=== PATIENT | female | born 1950 | race Caucasian/White ===

== ENCOUNTER 2017-03-03 23:39 | Inpatient (IN) | payer MEDICARE ==
[2017-03-04] MEDS ORDERED: Ondansetron HCl/PF 4 MG/2 ML Vial ONE (00:09)
[2017-03-04] MEDS ORDERED: Cefepime 2 GM VIAL ONE (00:40)
[2017-03-04] MEDS ORDERED: Sodium Chloride 0.9% 100 ML ONE (00:42)
[2017-03-04] MEDS ORDERED: Acetaminophen 325 MG TAB ONE (00:57)
[2017-03-04 00:59] LABS: Hemoglobin 13.6 g/dL (12.0-16.0); Mean Corpuscular HGB CONC 34.6 g/dL (32.0-36.0); Mean Corpuscular Hemoglobin 30.4 pg (27.0-31.0); Mean Corpuscular Volume 87.8 fl (81.0-99.0); Mean Platelet Volume 5.6 fL (7.4-10.4); Platelet Count 225 thou/uL (130-400); RBC Distribution Width 10.9 % (11.5-14.5); Red Blood Cell (RBC) Count 4.47 mill/uL (4.20-5.40); White Blood Cell (WBC) Count 17.6 thou/uL (4.8-10.8)
[2017-03-04 01:17] LABS: ALT (SGPT) 17 U/L (8-55); AST (SGOT) 10 U/L (5-34); Albumin 3.8 g/dL (3.4-4.8); Alkaline Phosphatase 44 U/L (40-150); Anion Gap 17 mmol/L (10-20); Bilirubin, Total 0.6 mg/dL (0.2-1.2); Calc. Creatinine Clearance 0 mL/min (70-130); Calcium 9.9 mg/dL (7.8-10.44); Carbon Dioxide 27 mmol/L (23-31); Chloride 101 mmol/L (98-107); Estimated GFR-MDRD 81; Globulin 2.3 g/dL (2.4-3.5); Glucose 136 mg/dL (80-115); Potassium 3.8 mmol/L (3.5-5.1); Protein, Total 6.1 g/dL (6.0-8.3); Sodium 141 mmol/L (136-145)
[2017-03-04 01:25] LABS: BUN (Urea Nitrogen) 23 mg/dL (9.8-20.1)
[2017-03-04 01:27] LABS: Anisocytosis SLIGHT = 6-15 cells (100X) (0-5/hpf); Band 4 % (5-11); Eosinophils 1 % (0-10); Lymphocytes 13 % (21-51); MDiff Complete? YES; Monocytes 5 % (0-10); Neutrophil 77 % (42-75)
[2017-03-04 02:29] LABS: Bilirubin Negative (Negative); Blood, Urine Negative (Negative); Clarity Clear (Clear); Glucose, Urine (Dipstick) >=1000 mg/dL (Negative); Leukocyte Negative (Negative); Nitrite Negative (Negative); Protein, Urine (Dipstick) Negative (Neg-Trace); Urobilinogen 0.2 mg/dL (0.2-1.0)
[2017-03-04 03:48] VITALS: BMI 27.6
[2017-03-04] MEDS ORDERED: Acetaminophen 325 MG TAB PO PRN ×2 (03:49→10:28)
[2017-03-04] MEDS ORDERED: Ondansetron ODT 4 MG TAB SL PRN (03:49)
[2017-03-04] MEDS ORDERED: Sodium Chloride 0.9% 1,000 ML IV SCH (03:49)
[2017-03-04] MEDS ORDERED: Ondansetron HCl/PF 4 MG/2 ML Vial IVP PRN (03:49)
[2017-03-04 05:37] LABS: Lactic Acid 1.4 mmol/L (0.5-2.2)
[2017-03-04] MEDS ORDERED: Clindamycin/D5W 900 MG in Premix Bag 1 BAG IVPB SCH (06:00)
--- NOTE | 2017-03-04 09:06 | RAD ---
SINGLE VIEW OF THE CHEST: COMPARISON: 10/05/09. HISTORY: Left arm pain with redness, swelling, and vomiting. Fever. FINDINGS: Single view of the chest shows a normal sized cardiomediastinal silhouette. There is no evidence of c onsolidation, mass, or pleural effusion. The bones are unremarkable. IMPRESSION: No evidence of acute cardiopulmonary disease. POS: [facility]
[2017-03-04] MEDS ORDERED: Dextrose 50% Abboject 50 ML SYRINGE SLOW IVP PRN (10:28)
[2017-03-04] MEDS ORDERED: Senokot 8.6 MG TAB PO PRN (10:28)
[2017-03-04] MEDS ORDERED: HumaLOG 300 UNITS/3 ML VIAL SC PRN ×2 (10:28)
[2017-03-04] MEDS ORDERED: Guaifenesin DM 100-10/5 ML UDCUP PO PRN (10:28)
[2017-03-04] MEDS ORDERED: Dextrose 5% in Water 1,000 ML IV PRN (10:28)
[2017-03-04] MEDS: Sodium Chloride 0.9% 1,000 ML IV SCH (11:27)
[2017-03-04] MEDS: cefTRIAXone\\ROCEPHIN 2 GM in Sodium Chloride 0.9% 100 ML IVPB SCH (12:26)
--- NOTE | 2017-03-04 14:06 | HP ---
REASON FOR ADMISSION: Left upper extremity cellulitis, sepsis. HISTORY OF PRESENT ILLNESS: The patient gives history of sudden onset of left upper extremity redness with aching and fever. She also developed chills. This started around 11:15 p.m. She came to the ER and started to have nausea and vomiting and her systolic blood pressure dropped down to 70s. She was given a dose of clindamycin, cefepime and vancomycin in the ER. The patient has known history of left breast cancer with prior mastectomy with lymph node resection. She wears a compression sleeve on a daily basis. She has had 1 prior episode of cellulitis in the left upper extremity in 06/2016. Patient says usually she gets a dose of IV antibiotics and it goes away, but this time this was severe with chills, rigors and her blood pressure dropping in association with nausea and vomiting as well. Patient follows up at [facility] for her left breast cancer. Last followup was on 11/24/2016. 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 PAST MEDICAL AND SURGICAL HISTORY: Hypertension, diabetes mellitus type 2, osteoporosis, left breast cancer with mastectomy and prior chemo and radiation therapy, hysterectomy. CURRENT MEDICATIONS: Patient is on metformin 1000 mg twice daily, Januvia 100 mg daily, Invokana 300 mg daily, valsartan 320 mg daily, anastrozole 1 mg daily , calcium with vitamin D twice daily, alendronate 70 mg once a week, and Levemir 12 units subcu daily. ALLERGIES: AMOXICILLIN which causes petechia. PERSONAL HISTORY: Does not abuse alcohol or drugs. No history of smoking. Lives with her . FAMILY HISTORY: Mother is 88 years old and is living. She has history of COPD. Has had a pacemaker and has dementia. Father of massive PA at the age of 87 years. REVIEW OF SYSTEMS: The following complete review of systems was negative, unless otherwise mentioned in the HPI or below: Constitutional: Weight loss or gain, ability to conduct usual activities. Skin: Rash, itching. Eyes: Double vision, pain. ENT/Mouth: Nose bleeding, neck stiffness, pain, tenderness. Cardiovascular: Palpitations, dyspnea on exertion, orthopnea. Respiratory: Shortness of breath, wheezing, cough, hemoptysis, fever or night sweats. Gastrointestinal: Poor appetite, abdominal pain, heartburn, nausea, vomiting, constipation, or diarrhea. Genitourinary: Urgency, frequency, dysuria, nocturia. Musculoskeletal: Pain, swelling. Neurologic/Psychiatric: Anxiety, depression. Allergy/Immunologic: Skin rash, bleeding tendency. PHYSICAL EXAMINATION: GENERAL: The patient is a 66-year-old female who is currently not in any acute distress. VITAL SIGNS: Blood pressure 160/80 on arrival with blood pressure dropping to 106/53. Her temperature 99.7 degrees Fahrenheit, respiratory rate 18 per minute , saturating 96% on room air, pulse is 90 per minute. NECK: Supple, no elevated JVD. EYES: Extraocular muscles intact. Pupils reacting to light. ORAL CAVITY: Mucous membranes are dry. No exudates or congestion. CARDIOVASCULAR SYSTEM: S1, S2 heard. Regular rhythm. RESPIRATORY SYSTEM: Air entry 1+ bilaterally. No rales or rhonchi. ABDOMEN: Soft, bowel sounds heard. No tenderness, rigidity or guarding. EXTREMITIES: Left upper extremity, there is edema and erythema. This extends to entire left upper extremity to the anterior chest wall adjacent to the left upper extremity. Peripheral pulses are 1+ bilateral. There is no gangrene. The patient is able to move her left upper extremity well. CENTRAL NERVOUS SYSTEM: No gross focal deficits seen. Patient is alert, awake , oriented well. PSYCHIATRIC: The patient's mood is euthymic. No hallucinations or delusions. LABORATORY DATA AND X-RAY FINDINGS: White count of 17, hemoglobin and hematocrit 13 and 39, platelet count 225 with 77% neutrophils and 4% bands, MCV is 87. Electrolytes are stable. BUN 23, creatinine 0.7, glucose is 136, lactic acid is 2.8. Liver enzymes within normal limits. Albumin is 3.8. Chest x-ray done shows no acute cardiopulmonary abnormalities. EKG done show normal sinus rhythm at 84 beats per minute. There are Q-waves seen in V1 and V2. There is poor R-wave progression and likely mild LVH. CLINICAL IMPRESSION AND PLAN: The patient will be admitted to medical floor for left upper extremity cellulitis with sepsis. The patient has prior history of lymphedema due to left mastectomy with lymph node dissection done 7 years back for breast cancer. She has had 1 prior episode of cellulitis in 06/2016. She will be placed on vancomycin and ceftriaxone for now. She will be closely monitored for any untoward reactions for ceftriaxone as patient is allergic to AMOXICILLIN. She will also be on normal saline at 80 mL per hour due to current sepsis. We will continue her Arimidex, metformin, valsartan, and Januvia as before. We will also consult Dr. Mata in view of her history of breast cancer with lymphedema and current cellulitis with sepsis. MTDD
[2017-03-04] MEDS: Vancomycin HCl 750 MG in Sodium Chloride 0.9% 250 ML 250 ML IVPB SCH (14:22)
--- NOTE | 2017-03-04 18:11 | CON ---
DATE OF CONSULTATION: 03/04/2017 REASON FOR CONSULTATION: Cellulitis, left upper extremity. HISTORY OF PRESENT ILLNESS: A 66-year-old with a history of left breast cancer status post mastectom y and chemoradiation with chronic lymphedema of left upper extremity managed with a sleeve. The lolly ent has had various episodes of cellulitis in the past usually managed either with home antimicrobial therapy or visits to the emergency room, but never had been admitted until this time. She developed some vomiting, left arm pain, and redness. She has been started on antimicrobial therapy and feelin g better at this time. No headaches. No visual symptoms. No more vomiting. No dyspnea or chest pa in. No abdominal pain or diarrhea. No genitourinary symptoms. PAST MEDICAL HISTORY: Left breast cancer, hypertension, treatment with mastectomy and chemoradiation therapy. PAST SURGICAL HISTORY: Includes hysterectomy as well. SOCIAL HISTORY: Never smoker. ALLERGIES: Possible reaction to AMOXICILLIN, but this is not certain and was long time ago. MEDICATIONS AT HOME: Metformin, Januvia, Invokana, valsartan, anastrozole, alendronate, and insulin. FAMILY HISTORY: Noncontributory. ANTIMICROBIALS: Now she is receiving ceftriaxone and vancomycin. PHYSICAL EXAMINATION: VITAL SIGNS: T-max 99.7, blood pressure 111/66, pulse 82, respirations 14-16, and O2 sat 95%. SKIN: Shows the very diffuse salmon colored erythema, circumferential, very symmetric distribution e xtending from the axillary fold all the way to the wrist, left side. No petechiae or purpura. No bl istering noted. A little bit of erythema noted around the mastectomy site as well. No lymphadenopat hy. HEENT: Ocular movements are conjugate. Oral cavity is normal. NECK: Supple. LUNGS: With symmetric clear breath sounds. HEART: Normal. ABDOMEN: Soft, not distended or tender. No ascites. No bladder distention. No organomegaly. EXTREMITIES: No joint inflammatory activity. Pulses show 2+ in dorsalis pedis. Plantar responses a re flexure. NEUROLOGIC: Cognitive function appears to be intact. LABORATORY DATA: White cell count 17.6, hemoglobin 13, platelets 225 with 77% neutrophils. Creatini ne is 0.72, normal liver profile. Globulin 2.3. Urinalysis was unremarkable except for glycosuria. Cultures thus far negative. Chest x-ray with no infiltrates. ASSESSMENT: Lymphedema of left upper extremity following mastectomy and lymphadenectomy for manageme nt of breast cancer and recurrent episodes of cellulitis. Now the patient comes with another episode . In view of the clinical findings, most likely scenario is beta hemolytic streptococcal cellulitis. No evidence of abscess to suggest this Staphylococcal infection. We will discontinue vancomycin an d continue Rocephin and then eventually transition to oral Keflex for discharge planning for another 2 weeks. After that, may consider allergy testing for penicillin and potential use of Pen-Vee K as a chronic suppressive agent for 6 to 12 months. Another approach would be to give her a supply of Kef bj for her to start preemptively at the earlier signs of recurrent inflammatory change in the future .
[2017-03-04] MEDS: metFORMIN 500 MG TAB PO SCH (18:18)
[2017-03-04] MEDS: Famotidine 20 MG TAB PO SCH (20:01)
[2017-03-04] MEDS: INSULIN DETEMIR SC SCH ×4 (22:33)
[2017-03-05] MEDS: Vancomycin HCl 750 MG in Sodium Chloride 0.9% 250 ML 250 ML IVPB SCH ×2 (01:26→15:08)
[2017-03-05] MEDS: Sodium Chloride 0.9% 1,000 ML IV SCH (01:27)
[2017-03-05 05:03] LABS: #Eosinphils 0.1 thou/uL (0.0-0.7); #Lymphocytes 1.5 thou/uL (1.20-3.40); #Monocytes 0.6 thou/uL (0.11-0.59); #Neutrophils 6.6 thou/uL (1.40-6.50); %Basophils 0.4 % (0.0-1.0); %Eosinophils 1.2 % (0.0-10.0); %Neutrophils 74.4 % (42.0-75.0); Hemoglobin 11.6 g/dL (12.0-16.0); Mean Corpuscular Hemoglobin 31.2 pg (27.0-31.0); Mean Corpuscular Volume 94.7 fl (81.0-99.0); Mean Platelet Volume 6.7 fL (7.4-10.4); Platelet Count 187 thou/uL (130-400); RBC Distribution Width 11.6 % (11.5-14.5); Red Blood Cell (RBC) Count 3.73 mill/uL (4.20-5.40); White Blood Cell (WBC) Count 8.9 thou/uL (4.8-10.8)
[2017-03-05 05:19] LABS: Anion Gap 12 mmol/L (10-20); BUN (Urea Nitrogen) 12 mg/dL (9.8-20.1); Calc. Creatinine Clearance 107 mL/min (70-130); Calcium 8.1 mg/dL (7.8-10.44); Carbon Dioxide 22 mmol/L (23-31); Chloride 108 mmol/L (98-107); Estimated GFR-MDRD Greater than 90; Glucose 119 mg/dL (80-115); Potassium 3.5 mmol/L (3.5-5.1); Sodium 138 mmol/L (136-145)
[2017-03-05] MEDS: Enoxaparin Sodium 40 MG/0.4 ML SYRINGE SC SCH (08:35)
[2017-03-05] MEDS: Famotidine 20 MG TAB PO SCH ×2 (08:35→20:03)
[2017-03-05] MEDS: Alogliptin 25 MG TAB PO SCH (08:35)
[2017-03-05] MEDS: metFORMIN 500 MG TAB PO SCH ×2 (08:36→16:32)
[2017-03-05] MEDS: Valsartan 80 MG TAB PO SCH (08:50)
[2017-03-05] MEDS: Anastrozole 1 MG TAB PO SCH (08:50)
--- NOTE | 2017-03-05 12:40 | PDOC.PN ---
- Subjective Encounter Start Date: 03/05/17 Encounter Start Time: 12:37 Subjective: Seen and examined feeling better - Objective Resuscitation Status: Resuscitation Status FULL:Full Resuscitation Vital Signs & Weight: Vital Signs (12 hours) Temp Pulse Resp BP Pulse Ox 03/05/17 08:00 97.7 F 66 18 131/54 L 96 Weight Weight 156 lb 4.8 oz I&O: 03/04/17 03/05/17 03/06/17 06:59 06:59 06:59 Intake Total 390 2360 800 Output Total 700 1350 Balance -310 1010 800 Result Diagrams: 03/05/17 03:59 03/05/17 03:59 Additional Labs: Accuchecks 03/05/17 03/04/17 03/04/17 06:06 20:44 16:42 POC Glucose 101 146 H 95 Phys Exam - Physical Examination Constitutional: NAD HEENT: PERRLA, moist MMs, sclera anicteric, TM's clear Neck: no nodes, no JVD, supple, full ROM Respiratory: no wheezing, no rales, no rhonchi, clear to auscultation bilateral Cardiovascular: RRR, no significant murmur, no rub Gastrointestinal: soft, non-tender, no distention, positive bowel sounds Musculoskeletal: no edema, pulses present Deviation from normal: LT upper cellulitis Dx/Plan (1) Cellulitis Code(s): L03.90 - CELLULITIS, UNSPECIFIED Status: Acute (2) Breast cancer Status: Acute (3) Hypertension Code(s): I10 - ESSENTIAL (PRIMARY) HYPERTENSION Status: Acute (4) Diabetes 1.5, managed as type 2 Code(s): E10.9 - TYPE 1 DIABETES MELLITUS WITHOUT COMPLICATIONS Status: Acute - Plan plan discussed w/ family, continue antibiotics, PT/OT, social services aide Appreciate ID input * .
[2017-03-05] MEDS: cefTRIAXone\\ROCEPHIN 2 GM in Sodium Chloride 0.9% 100 ML IVPB SCH (12:59)
[2017-03-05 13:23] LABS: Vancomycin, Trough 6.9 ug/mL
[2017-03-05] MEDS: Vancomycin HCl 1 GM in Premix Bag 1 BAG IVPB SCH ×2 (15:00→21:29)
[2017-03-05] MEDS: INSULIN DETEMIR SC SCH ×4 (20:03)
[2017-03-06] MEDS: Vancomycin HCl 1 GM in Premix Bag 1 BAG IVPB SCH ×3 (05:27→21:24)
[2017-03-06] MEDS: Alogliptin 25 MG TAB PO SCH (08:00)
[2017-03-06] MEDS: Famotidine 20 MG TAB PO SCH ×2 (08:00→20:06)
[2017-03-06] MEDS: metFORMIN 500 MG TAB PO SCH ×2 (08:00→16:55)
[2017-03-06] MEDS: Enoxaparin Sodium 40 MG/0.4 ML SYRINGE SC SCH (08:01)
--- NOTE | 2017-03-06 08:20 | PDOC.PN ---
- Subjective Encounter Start Date: 03/06/17 Encounter Start Time: 08:19 Subjective: Seen and examined with no new complaiint - Objective Resuscitation Status: Resuscitation Status FULL:Full Resuscitation Vital Signs & Weight: Weight Weight 156 lb 4.8 oz I&O: 03/05/17 03/06/17 03/07/17 06:59 06:59 06:59 Intake Total 2360 1280 Output Total 1350 Balance 1010 1280 Result Diagrams: 03/05/17 03:59 03/05/17 03:59 Additional Labs: Accuchecks 03/06/17 03/05/17 03/05/17 05:52 19:51 16:36 POC Glucose 135 H 136 H 129 H 03/05/17 12:20 POC Glucose 85 Phys Exam - Physical Examination Constitutional: NAD HEENT: PERRLA, moist MMs, sclera anicteric, TM's clear Neck: no nodes, no JVD, supple, full ROM Respiratory: no wheezing, no rales, no rhonchi, clear to auscultation bilateral Cardiovascular: RRR, no significant murmur, no rub Gastrointestinal: soft, non-tender, no distention Musculoskeletal: pulses present, edema present LT upper extremity Neurological: non-focal, normal sensation, moves all 4 limbs Dx/Plan (1) Cellulitis Code(s): L03.90 - CELLULITIS, UNSPECIFIED Status: Acute (2) Breast cancer Status: Acute (3) Hypertension Code(s): I10 - ESSENTIAL (PRIMARY) HYPERTENSION Status: Acute (4) Diabetes 1.5, managed as type 2 Code(s): E10.9 - TYPE 1 DIABETES MELLITUS WITHOUT COMPLICATIONS Status: Acute - Plan plan discussed w/ family, continue antibiotics, PT/OT, social work case manager On vancomycin/ceftriaxone--continue -: ID following appreciate input * .
[2017-03-06] MEDS: Valsartan 80 MG TAB PO SCH (11:51)
[2017-03-06] MEDS: Anastrozole 1 MG TAB PO SCH (11:51)
[2017-03-06] MEDS: cefTRIAXone\\ROCEPHIN 2 GM in Sodium Chloride 0.9% 100 ML IVPB SCH (11:56)
[2017-03-06 14:01] LABS: Vancomycin, Trough 17.1 ug/mL
[2017-03-06] MEDS: INSULIN DETEMIR SC SCH ×2 (21:24)
[2017-03-07] MEDS: Vancomycin HCl 1 GM in Premix Bag 1 BAG IVPB SCH (05:05)
[2017-03-07 08:21] VITALS: BP 130/51; TEMP 97.7
[2017-03-07] MEDS: Famotidine 20 MG TAB PO SCH (08:44)
[2017-03-07] MEDS: Enoxaparin Sodium 40 MG/0.4 ML SYRINGE SC SCH (08:44)
[2017-03-07] MEDS: Alogliptin 25 MG TAB PO SCH (08:44)
[2017-03-07] MEDS: metFORMIN 500 MG TAB PO SCH (08:44)
[2017-03-07] MEDS: Valsartan 80 MG TAB PO SCH (11:15)
[2017-03-07] MEDS: Anastrozole 1 MG TAB PO SCH (11:16)
--- NOTE | 2017-03-07 11:20 | PDOC.PN ---
- Subjective Encounter Start Date: 03/07/17 Encounter Start Time: 09:50 -: old records requested/rev Patient seen and examined. No new complaints. No overnight events - Objective Resuscitation Status: Resuscitation Status FULL:Full Resuscitation MAR Reviewed: Yes Vital Signs & Weight: Vital Signs (12 hours) Temp Pulse Resp BP Pulse Ox 03/07/17 08:20 97.7 F 75 20 130/51 L 96 03/07/17 08:00 97.7 F 75 20 96 Weight Weight 156 lb 4.8 oz I&O: 03/06/17 03/07/17 03/08/17 06:59 06:59 06:59 Intake Total 1280 840 Balance 1280 840 Result Diagrams: 03/05/17 03:59 03/05/17 03:59 Additional Labs: Accuchecks 03/07/17 03/06/17 03/06/17 05:26 20:22 17:17 POC Glucose 98 184 H 122 H 03/06/17 11:13 POC Glucose 175 H Phys Exam - Physical Examination Constitutional: NAD HEENT: PERRLA, moist MMs, sclera anicteric Neck: no JVD, supple Respiratory: no wheezing, no rales, no rhonchi Cardiovascular: RRR, no significant murmur, no rub Gastrointestinal: soft, non-tender, no distention, positive bowel sounds Musculoskeletal: no edema, pulses present Neurological: non-focal, normal sensation Lymphatic: no nodes Psychiatric: normal affect, A&O x 3 Skin: no rash, normal turgor Dx/Plan (1) Cellulitis of left upper extremity Code(s): L03.114 - CELLULITIS OF LEFT UPPER LIMB Status: Acute (2) Sepsis Code(s): A41.9 - SEPSIS, UNSPECIFIED ORGANISM Status: Acute (3) Diabetes type 2, controlled Code(s): E11.9 - TYPE 2 DIABETES MELLITUS WITHOUT COMPLICATIONS Status: Chronic (4) H/O malignant neoplasm of breast Code(s): Z85.3 - PERSONAL HISTORY OF MALIGNANT NEOPLASM OF BREAST Status: Chronic (5) Hypertension Code(s): I10 - ESSENTIAL (PRIMARY) HYPERTENSION Status: Chronic - Plan cont current plan of care, continue antibiotics * medication reviewed as below * symptomatic treatment * see discharge summery. Review of Systems - Review of Systems ENT: negative: Ear Pain, Ear Discharge, Nose Pain, Nose Discharge, Nose Congestion, Mouth Pain, Mouth Swelling, Throat Pain, Throat Swelling, Other Respiratory: negative: Cough, Dry, Shortness of Breath, Hemoptysis, SOB with Excertion, Pleuritic Pain, Sputum, Wheezing Cardiovascular: negative: chest pain, palpitations, orthopnea, paroxysmal nocturnal dyspnea, edema, light headedness, other Gastrointestinal: negative: Nausea, Vomiting, Abdominal Pain, Diarrhea, Constipation, Melena, Hematochezia, Other Genitourinary: negative: Dysuria, Frequency, Incontinence, Hematuria, Retention , Other Musculoskeletal: negative: Neck Pain, Shoulder Pain, Arm Pain, Back Pain, Hand Pain, Leg Pain, Foot Pain, Other - Medications/Allergies Allergies/Adverse Reactions: Allergies Allergy/AdvReac Type Severity Reaction Status Date / Time amoxicillin Allergy Rash Verified 03/04/17 03:41 Medications: Current Medications Acetaminophen (Tylenol) 650 mg PO Q4H PRN PRN Reason: Headache/Fever or Pain Alogliptin Benzoate (Alogliptin) 25 mg PO DAILY [facility] Last Admin: 03/07/17 08:44 Dose: 25 mg Anastrozole (Arimidex) 1 mg PO DAILY [facility] Last Admin: 03/07/17 11:16 Dose: 1 mg Dextrose/Water (Dextrose 50%) 25 gm SLOW IVP PRN PRN PRN Reason: Hypoglycemia Enoxaparin Sodium (Lovenox) 40 mg SC 0900 [facility] Last Admin: 03/07/17 08:44 Dose: 40 mg Famotidine (Pepcid) 20 mg PO BID [facility] Last Admin: 03/07/17 08:44 Dose: 20 mg Glucagon (Glucagon) 1 mg IM PRN PRN PRN Reason: Hypoglycemia Guaifenesin/Dextromethorphan (Robitussin Dm) 15 ml PO Q4H PRN PRN Reason: Cough Ceftriaxone Sodium 2 gm/ (Sodium Chloride) 100 mls @ 200 mls/hr IVPB 1200 [facility] Last Admin: 03/06/17 11:56 Dose: 100 mls Dextrose/Water (D5w) 1,000 mls @ 0 mls/hr IV .Q0M PRN; As Directed PRN Reason: Hypoglycemia Insulin Detemir 12 units/ (Syringe) 0.12 mls @ 0 mls/hr SC HS [facility] Last Admin: 03/06/17 21:24 Dose: 0.12 mls Insulin Detemir 12 units/ (Syringe) 0.12 mls @ 0 mls/hr SC HS [facility] Last Admin: 03/06/17 21:24 Dose: Not Given Vancomycin HCl 1 gm/ Device 200 mls @ 200 mls/hr IVPB 0600,1400,2200 [facility] Last Admin: 03/07/17 05:05 Dose: 200 mls Insulin Human Lispro (Humalog) 0 units SC .MODERATE SLIDING SC PRN PRN Reason: Moderate Correctional Scale Insulin Human Lispro (Humalog) 0 units SC .BEDTIME SLIDING SC PRN PRN Reason: Bedtime Correctional Scale Metformin HCl (Glucophage) 1,000 mg PO BID-WM [facility] Last Admin: 03/07/17 08:44 Dose: 1,000 mg Miscellaneous Medication (Pharmacy To Dose) 1 each IVPB .VANCOMYCIN [facility] Senna (Senokot) 2 tab PO HSPRN PRN PRN Reason: Constipation Valsartan (Diovan) 320 mg PO DAILY [facility] Last Admin: 03/07/17 11:15 Dose: 320 mg
--- NOTE | 2017-03-07 12:08 | DIS ---
DATE OF ADMISSION: 03/04/2017 DATE OF DISCHARGE: 03/07/2017 PRIMARY CARE PHYSICIAN: Dr. Arron Herrera. DISCHARGE DISPOSITION: Home. PRIMARY DISCHARGE DIAGNOSES: 1. Left upper extremity cellulitis. 2. Sepsis. SECONDARY DISCHARGE DIAGNOSES: 1. Chronic lymphedema of left upper extremity. 2. History of malignant neoplasm of breast. 3. Hypertension. 4. Diabetes type 2. PRIMARY PROCEDURES/OPERATIONS: None. RADIOLOGICAL INVESTIGATION: Chest x-ray was normal. SIGNIFICANT LABORATORY DATA: Hemoglobin 11.6, creatinine 0.57. Urinalysis normal. Blood culture ne gative. DISCHARGE MEDICATIONS: Fosamax 70 mg every week, Arimidex 1 mg p.o. daily, calcium with vitamin D 1 tablet p.o. b.i.d., Invokana 300 mg p.o. daily, Levemir insulin 12 units subcutaneously at bedtime, m etformin 1000 mg p.o. b.i.d., Januvia 100 mg p.o. daily, valsartan 320 mg p.o. daily, Keflex 500 mg p .o. t.i.d. for 10 more days. CONTRAINDICATIONS: None. CODE STATUS: FULL CODE. INPATIENT CONSULTANTS: Dr. Mata. TEST RESULTS PENDING ON DISCHARGE: None. ALLERGIES: AMOXICILLIN. DISCHARGE PLAN: Post hospital, the patient will follow up with primary care physician in 1 week. Th patient is advised to make appointment with Dr. Mata if needed. HOSPITAL COURSE: A 66-year-old female with history of breast cancer required mastectomy. She was ad mitted by Dr. Nelson. Please see his H&P for further details. The patient was meeting sepsis c riteria. She was having cellulitis of left upper extremity. She was admitted to medical floor. She was treated with vancomycin and Rocephin. Dr. Mata was consulted and he discontinued vancomycin. He continued with Rocephin. Patient has allergy to amoxicillin, but she was not sure whether it is t rue allergy or not, but she tolerated Rocephin very well. The patient is going to make appointment w [facility] network diagnostic support specialist to confirm her allergy to amoxicillin. Dr. Mata recommended to continue Kefl ex for another week and she will need prophylactic therapy to prevent recurrent cellulitis. At this point, the patient wanted to follow up with network diagnostic support specialist to confirm her allergy status with kiesha xicillin and then she will decide about penicillin VK therapy. The patient has dramatic improvement in her cellulitis with IV antibiotic therapy. She remained afeb rile and hemodynamically stable. The patient is seen and examined at bedside today. Please see my progress note from today for furthe r details. All new medication prescription given to her. The patient is medically stable for discha rge today.
== END 2017-03-07 12:25 | disposition home or self-care (01) | DRG 872 ==
LOC: SCSER 23:39 → 2NO 03-04 01:00 → T4-B 03-04 11:53
PROVIDERS: ADMIT Internal Medicine; ATTEND Internal Medicine
DX: A41.9 Sepsis, unspecified organism (principal); E11.9 Type 2 diabetes mellitus without complications; I10 Essential (primary) hypertension; L03.114 Cellulitis of left upper limb; I89.0 Lymphedema, not elsewhere classified; Z85.3 Personal history of malignant neoplasm of breast; Z90.710 Acquired absence of both cervix and uterus; Z90.12 Acquired absence of left breast and nipple
CPT/HCPCS: 36415; 36416; 71045; 80048; 80053; 80202; 81003; 83605; 85025; 87040; 93005; 96361; 96365; 96367; 96375; J0692; J0696; J1650; J1815; J2405; J3370; J3490; J7050

== ENCOUNTER 2020-07-24 16:04 | Outpatient (CLI) | payer MEDICARE ==
[2020-07-24 18:04] LABS: #Eosinphils 0.2 10x3/uL (0.0-0.5); #Monocytes 0.5 10x3/uL (0.0-1.1); #Neutrophils 5.3 10x3/uL (1.5-8.4); %Basophils 0.5 % (0.0-2.0); %Eosinophils 2.7 % (0.0-6.0); %Lymphocytes 25.8 % (18.0-47.0); %Monocytes 6.5 % (0.0-10.0); %Neutrophils 64.1 % (40.0-75.0); Hemoglobin 13.4 g/dL (12.0-15.5); Mean Corpuscular HGB CONC 34.3 g/dL (32.0-36.0); Mean Corpuscular Hemoglobin 30.1 pg (27.0-33.0); Mean Corpuscular Volume 87.9 fl (81.6-98.3); Platelet Count 285 10x3/uL (150-450); RBC Distribution Width 12.7 % (11.5-14.5); Red Blood Cell (RBC) Count 4.45 10x6/uL (3.90-5.03); White Blood Cell (WBC) Count 8.2 10x3/uL (3.5-10.5)
[2020-07-24 18:15] LABS: INR-International Normal Ratio 0.9; Prothrombin Time 9.8 sec (9.5-12.1)
[2020-07-24 18:16] LABS: Anion Gap 15 mmol/L (10-20); BUN (Urea Nitrogen) 12 mg/dL (9.8-20.1); Calc. Creatinine Clearance 0 mL/min (70-130); Calcium 9.5 mg/dL (7.8-10.44); Carbon Dioxide 28 mmol/L (23-31); Chloride 100 mmol/L (98-107); Glucose 281 mg/dL (80-115); Potassium 3.8 mmol/L (3.5-5.1); Sodium 139 mmol/L (136-145)
[2020-07-25 13:03] LABS: SARS-CoV-2 PCR by NAA Not Detected (NotDetected)
== END 2020-07-24 16:05 | disposition home or self-care (01) ==
LOC: LABBT 16:04
PROVIDERS: ATTEND Orthopaedic Surgery
DX: Z01.818 Encounter for other preprocedural examination (principal); Z20.822 Contact with and (suspected) exposure to COVID-19; M17.11 Unilateral primary osteoarthritis, right knee
CPT/HCPCS: 80048; 85025; 85610; 87081; U0003; U0005; 93005; 93010

== ENCOUNTER 2020-07-29 05:35 | Inpatient (IN) | payer MEDICARE ==
[2020-07-25 14:42] VITALS: BMI 28.3
[2020-07-29] MEDS ORDERED: Midazolam HCl 2 mg/2 ml Vial ONE ×2 (06:14→06:31)
[2020-07-29] MEDS ORDERED: Fentanyl 100 MCG/2 ML VIAL ONE ×4 (06:14→09:53)
[2020-07-29] MEDS ORDERED: Midazolam HCl 2 mg/ml Syrup 5 ml UD Cup ONE (06:31)
[2020-07-29] MEDS ORDERED: Bupivacaine 0.25% HCL 30 ML VIAL ONE (06:32)
[2020-07-29] MEDS ORDERED: Levofloxacin 500 mg/D5W 100 ml Premix Bag ONE (06:45)
[2020-07-29] MEDS ORDERED: Clindamycin/D5W 600 mg/50 ml Premix Bag ONE (06:45)
[2020-07-29] MEDS ORDERED: Tranexamic Acid 1,000 MG/10 ML VIAL ONE (06:45)
[2020-07-29] MEDS ORDERED: Sodium Chloride 0.9% 100 ML ONE (06:45)
[2020-07-29] MEDS ORDERED: Vancomycin 1 GM/200 ML BAG ONE (06:59)
[2020-07-29] MEDS ORDERED: Vancomycin 1 GM in Premix Bag 1 BAG IVPB SCH ×2 (07:00→19:00)
[2020-07-29] MEDS ORDERED: Ropivacaine 2% HCl/PF (20 MG/10 ML VIAL) ONE (07:29)
[2020-07-29] MEDS ORDERED: Metoclopramide HCl 10 MG/2 ML VIAL ONE (07:29)
[2020-07-29] MEDS ORDERED: Bupivacaine HCl 0.5%/Epinephrine 1:200,000/PF 30 ml Vial ONE (07:29)
[2020-07-29] MEDS ORDERED: PROPOFOL 200 MG/20 ML VIAL ONE (07:29)
[2020-07-29] MEDS ORDERED: Ondansetron PF 4 MG/2 ML Vial ONE (07:29)
[2020-07-29] MEDS ORDERED: Lidocaine 1% PF 5 ML VIAL ONE (07:29)
[2020-07-29] MEDS ORDERED: Zolpidem Tartrate 5 MG TAB PO PRN ×2 (07:30→09:24)
[2020-07-29] MEDS ORDERED: Promethazine HCl 25 MG/ML VIAL IM PRN ×3 (07:30→09:24)
[2020-07-29] MEDS ORDERED: traMADol HCl 50 MG TAB PO PRN ×2 (07:30→09:24)
[2020-07-29] MEDS ORDERED: Fentanyl 100 MCG/2 ML VIAL IV PRN (07:30)
[2020-07-29] MEDS ORDERED: Ropivacaine 0.2% 550 ML 550 ML NERVE BLCK SCH (07:30)
[2020-07-29] MEDS ORDERED: Promethazine HCl 25 MG/ML VIAL SLOW IVP PRN (09:01)
[2020-07-29] MEDS ORDERED: Ondansetron HCl/PF 4 MG/2 ML Vial IVP PRN (09:01)
[2020-07-29] MEDS ORDERED: Ondansetron PF 4 MG/2 ML Vial IVP PRN (09:24)
[2020-07-29] MEDS ORDERED: HYDROcodone/Acetaminophen 10/325 mg Tablet PO PRN ×2 (09:24)
[2020-07-29] MEDS ORDERED: diphenhydrAMINE 25 MG CAP PO PRN (09:24)
[2020-07-29] MEDS ORDERED: Acetaminophen 325 MG TAB PO PRN (09:24)
[2020-07-29] MEDS ORDERED: Fentanyl 100 MCG/2 ML VIAL SLOW IVP PRN ×2 (09:24)
[2020-07-29] MEDS ORDERED: Ketorolac Tromethamine 30 MG/ML VIAL IVP PRN (09:24)
[2020-07-29] MEDS ORDERED: Ketorolac Tromethamine 30 MG/ML VIAL ONE (09:55)
[2020-07-29] MEDS ORDERED: Promethazine HCl 25 MG/ML VIAL ONE (10:14)
[2020-07-29] MEDS: Sodium Chloride 0.9% 1,000 ML IV SCH ×3 (10:51→20:26)
[2020-07-29] MEDS: Clindamycin/D5W 900 MG in Premix Bag 1 BAG IVPB SCH ×2 (12:01→18:06)
[2020-07-29] MEDS: Ketorolac Tromethamine 30 MG/ML VIAL IVP SCH ×3 (12:02→23:06)
[2020-07-29] MEDS ORDERED: Insulin Regular 300 UNITS/3 ML VIAL SC PRN (12:42)
[2020-07-29] MEDS ORDERED: Dextrose 5% in Water 1,000 ML IV PRN (12:42)
[2020-07-29] MEDS ORDERED: Dextrose 50% Abboject 50 ML SYRINGE SLOW IVP PRN (12:42)
[2020-07-29] MEDS: HYDROcodone/Acetaminophen 10/325 mg Tablet PO PRN ×2 (14:45→21:34)
[2020-07-29] MEDS ORDERED: hydrALAZINE 20 MG/ML VIAL SLOW IVP PRN (15:11)
[2020-07-29] MEDS ORDERED: Polyethylene Glycol 3350 17 GM Packet PO PRN (15:12)
[2020-07-29] MEDS: metFORMIN 500 MG TAB PO SCH (16:31)
[2020-07-29] MEDS: Insulin Regular 300 UNITS/3 ML VIAL SC PRN (16:31)
[2020-07-29] MEDS ORDERED: Lantus 1000 UNITS/10 ML VIAL SC SCH ×2 (21:00)
[2020-07-29] MEDS: Senokot S 8.6-50 MG TAB PO SCH (21:30)
[2020-07-29] MEDS: Ferrous Gluconate 324 MG TAB PO SCH (21:31)
[2020-07-29] MEDS: Calcium Carbonate 600 MG + Vit D TAB PO SCH (21:31)
[2020-07-29] MEDS: Aspirin 81 mg Enteric Coated Tablet PO SCH (21:31)
[2020-07-29] MEDS: Saccharomyces boulardii 250 MG CAP PO SCH (21:31)
[2020-07-29] MEDS: Ondansetron PF 4 MG/2 ML Vial IVP PRN (23:06)
[2020-07-30 05:45] LABS: Hemoglobin 10.8 g/dL (12.0-16.0); Mean Corpuscular HGB CONC 35.4 g/dL (32.0-36.0); Mean Corpuscular Hemoglobin 32.1 pg (27.0-31.0); Mean Corpuscular Volume 90.8 fL (78.0-98.0); Mean Platelet Volume 7.3 fL (7.4-10.4); Platelet Count 233 thou/uL (130-400); RBC Distribution Width 11.9 % (11.5-14.5); Red Blood Cell (RBC) Count 3.36 mill/uL (4.20-5.40); White Blood Cell (WBC) Count 10.2 thou/uL (4.8-10.8)
[2020-07-30] MEDS: Ketorolac Tromethamine 30 MG/ML VIAL IVP SCH ×5 (05:49→23:26)
[2020-07-30] MEDS: HYDROcodone/Acetaminophen 10/325 mg Tablet PO PRN ×4 (06:12→19:42)
[2020-07-30] MEDS: metFORMIN 500 MG TAB PO SCH ×2 (08:11→16:06)
[2020-07-30] MEDS: Lactinex Tablet PO SCH (08:11)
[2020-07-30] MEDS: Aspirin 81 mg Enteric Coated Tablet PO SCH ×2 (08:11→19:38)
[2020-07-30] MEDS: Calcium Carbonate 600 MG + Vit D TAB PO SCH ×2 (08:11→19:38)
[2020-07-30] MEDS: Losartan 25 MG TAB PO SCH (08:12)
[2020-07-30] MEDS: Ferrous Gluconate 324 MG TAB PO SCH ×2 (08:13→19:38)
[2020-07-30] MEDS: Multivitamin W/ Minerals 1 TAB PO SCH (08:13)
[2020-07-30] MEDS: Senokot S 8.6-50 MG TAB PO SCH ×2 (08:13→19:38)
[2020-07-30] MEDS ORDERED: Losartan 25 MG TAB PO SCH (09:00)
[2020-07-30] MEDS: Insulin Regular 300 UNITS/3 ML VIAL SC PRN ×2 (12:00→16:06)
[2020-07-30] MEDS: Sodium Chloride 0.9% 1,000 ML IV SCH ×2 (14:39→21:51)
[2020-07-30] MEDS: Ondansetron PF 4 MG/2 ML Vial IVP PRN (17:02)
[2020-07-30] MEDS: Saccharomyces boulardii 250 MG CAP PO SCH (19:38)
[2020-07-30] MEDS ORDERED: Lantus 1000 UNITS/10 ML VIAL SC SCH (21:00)
[2020-07-31] MEDS: HYDROcodone/Acetaminophen 10/325 mg Tablet PO PRN ×3 (02:46→13:13)
[2020-07-31] MEDS: traMADol HCl 50 MG TAB PO PRN ×2 (05:41→14:58)
[2020-07-31] MEDS: Ketorolac Tromethamine 30 MG/ML VIAL IVP SCH (05:42)
[2020-07-31 06:02] LABS: Hemoglobin 10.1 g/dL (12.0-16.0); Mean Corpuscular HGB CONC 35.5 g/dL (32.0-36.0); Mean Corpuscular Hemoglobin 32.3 pg (27.0-31.0); Mean Corpuscular Volume 90.9 fL (78.0-98.0); Mean Platelet Volume 7.2 fL (7.4-10.4); Platelet Count 215 thou/uL (130-400); RBC Distribution Width 11.7 % (11.5-14.5); Red Blood Cell (RBC) Count 3.14 mill/uL (4.20-5.40); White Blood Cell (WBC) Count 7.2 thou/uL (4.8-10.8)
[2020-07-31] MEDS: Senokot S 8.6-50 MG TAB PO SCH (07:52)
[2020-07-31] MEDS: Aspirin 81 mg Enteric Coated Tablet PO SCH (07:52)
[2020-07-31] MEDS: Losartan 25 MG TAB PO SCH (08:01)
[2020-07-31] MEDS: metFORMIN 500 MG TAB PO SCH (08:02)
[2020-07-31] MEDS: Ferrous Gluconate 324 MG TAB PO SCH (11:35)
[2020-07-31] MEDS: Multivitamin W/ Minerals 1 TAB PO SCH (11:36)
[2020-07-31 11:41] VITALS: BP 131/68; TEMP 97.9
[2020-07-31] MEDS: Calcium Carbonate 600 MG + Vit D TAB PO SCH (13:12)
[2020-07-31] MEDS: Lactinex Tablet PO SCH (13:13)
[2020-07-31] MEDS: Insulin Regular 300 UNITS/3 ML VIAL SC PRN (13:17)
[2020-07-31] MEDS: Sodium Chloride 0.9% 1,000 ML IV SCH (13:39)
== END 2020-07-31 15:57 | disposition home or self-care (01) | DRG 470 ==
LOC: SDC 05:35 → SURG A 09:24 → EDSTATUS 16:30
PROVIDERS: ADMIT Orthopaedic Surgery; ATTEND Orthopaedic Surgery
PROC: 0SRC0J9 Replacement of Right Knee Joint with Synthetic Substitute, Cemented, Open Approach (ICD-10-PCS; principal; 2020-07-29)
DX: M17.11 Unilateral primary osteoarthritis, right knee (principal); M24.561 Contracture, right knee; E11.22 Type 2 diabetes mellitus with diabetic chronic kidney disease; I12.9 Hypertensive chronic kidney disease with stage 1 through stage 4 chronic kidney disease, or unspecified chronic kidney disease; M85.80 Other specified disorders of bone density and structure, unspecified site; N18.2 Chronic kidney disease, stage 2 (mild); Z85.3 Personal history of malignant neoplasm of breast; Z88.1 Allergy status to other antibiotic agents; Z90.710 Acquired absence of both cervix and uterus; Z90.12 Acquired absence of left breast and nipple; Z98.42 Cataract extraction status, left eye; Z98.41 Cataract extraction status, right eye
CPT/HCPCS: 36415; 36416; 85027; A4306; C1713; C1776; J1815; J1885; J1956; J2250; J2405; J2550; J2704; J2765; J2795; J3010; J3370; J3490; S0020

== ENCOUNTER 2021-01-29 09:24 | Outpatient (CLI) | payer MEDICARE ==
[2021-01-29 10:59] LABS: #Basophils 0.1 10x3/uL (0.0-0.2); #Eosinphils 0.3 10x3/uL (0.0-0.5); #Monocytes 0.5 10x3/uL (0.0-1.1); #Neutrophils 5.2 10x3/uL (1.5-8.4); %Basophils 0.8 % (0.0-2.0); %Eosinophils 3.9 % (0.0-6.0); %Lymphocytes 23.1 % (18.0-47.0); %Monocytes 6.6 % (0.0-10.0); %Neutrophils 65.3 % (40.0-75.0); Hemoglobin 13.7 g/dL (12.0-15.5); Mean Corpuscular HGB CONC 33.5 g/dL (32.0-36.0); Mean Corpuscular Volume 89.5 fl (81.6-98.3); Platelet Count 296 10x3/uL (150-450); RBC Distribution Width 12.5 % (11.5-14.5); Red Blood Cell (RBC) Count 4.57 10x6/uL (3.90-5.03); White Blood Cell (WBC) Count 7.9 10x3/uL (3.5-10.5)
[2021-01-29 11:00] LABS: INR-International Normal Ratio 0.9; Prothrombin Time 9.9 sec (9.5-12.1)
[2021-01-29 11:03] LABS: Anion Gap 15 mmol/L (10-20); BUN (Urea Nitrogen) 12 mg/dL (9.8-20.1); Calc. Creatinine Clearance 0 mL/min (70-130); Carbon Dioxide 30 mmol/L (23-31); Chloride 98 mmol/L (98-107); Glucose 276 mg/dL (83-110); Potassium 4.6 mmol/L (3.5-5.1); Sodium 138 mmol/L (136-145)
[2021-01-29 22:07] LABS: SARS-CoV-2 PCR by NAA Not Detected (NotDetected)
== END 2021-01-29 09:25 | disposition home or self-care (01) ==
LOC: LABBT 09:24
PROVIDERS: ATTEND Orthopaedic Surgery
DX: Z01.812 Encounter for preprocedural laboratory examination (principal); M17.12 Unilateral primary osteoarthritis, left knee; Z20.822 Contact with and (suspected) exposure to COVID-19
CPT/HCPCS: 80048; 85025; 85610; 87081; U0003; U0005

== ENCOUNTER 2021-02-03 05:28 | Observation (INO) | payer MEDICARE ==
[2021-02-02 12:25] VITALS: BMI 28.3
[2021-02-03] MEDS ORDERED: Fentanyl 100 MCG/2 ML VIAL ONE ×3 (06:03→09:53)
[2021-02-03] MEDS ORDERED: HYDROmorphone 2 MG/ML VIAL ONE (06:03)
[2021-02-03] MEDS ORDERED: Sodium Chloride 0.9% 100 ML ONE (06:06)
[2021-02-03] MEDS ORDERED: Vancomycin 1 GM/200 ML BAG ONE (06:06)
[2021-02-03] MEDS ORDERED: Tranexamic Acid 1,000 MG/10 ML VIAL ONE (06:06)
[2021-02-03] MEDS ORDERED: ceFAZolin 2 GM/DEX 5% 100 ML BAG ONE (06:06)
[2021-02-03] MEDS ORDERED: Midazolam HCl 2 mg/2 ml Vial ONE (06:50)
[2021-02-03] MEDS ORDERED: Lidocaine 1% (PF) 30 ML VIAL ONE (06:50)
[2021-02-03] MEDS ORDERED: Lidocaine 1% w/Epinephrine 1:100K 20 ML VIAL ONE (07:09)
[2021-02-03] MEDS ORDERED: Bupivacaine 0.25% 10 ML VIAL ONE (07:09)
[2021-02-03] MEDS ORDERED: Lidocaine 1% PF 5 ML VIAL ONE (07:33)
[2021-02-03] MEDS ORDERED: Phenylephrine 10 MG/ML VIAL ONE (07:33)
[2021-02-03] MEDS ORDERED: Metoclopramide HCl 10 MG/2 ML VIAL ONE (07:33)
[2021-02-03] MEDS ORDERED: Bupivacaine HCl 0.5%/Epinephrine 1:200,000/PF 30 ml Vial ONE (07:33)
[2021-02-03] MEDS ORDERED: Ondansetron PF 4 MG/2 ML Vial ONE ×2 (07:33)
[2021-02-03] MEDS ORDERED: Dexamethasone 20 MG/5 ML VIAL ONE (07:33)
[2021-02-03] MEDS ORDERED: PROPOFOL 200 MG/20 ML VIAL ONE (07:33)
[2021-02-03] MEDS ORDERED: Ketorolac Tromethamine 30 MG/ML VIAL ONE (07:33)
[2021-02-03] MEDS ORDERED: ePHEDrine 50 MG/ML VIAL ONE (07:33)
[2021-02-03] MEDS ORDERED: Fentanyl 100 MCG/2 ML VIAL IV PRN (08:23)
[2021-02-03] MEDS ORDERED: HYDROcodone/Acetaminophen 10/325 mg Tablet PO PRN ×4 (08:30→10:58)
[2021-02-03] MEDS ORDERED: Ondansetron PF 4 MG/2 ML Vial IVP PRN ×2 (08:30→10:58)
[2021-02-03] MEDS ORDERED: Promethazine HCl 25 MG/ML VIAL IM PRN ×3 (08:30→10:58)
[2021-02-03] MEDS ORDERED: Zolpidem Tartrate 5 MG TAB PO PRN ×2 (08:30→10:58)
[2021-02-03] MEDS ORDERED: Ropivacaine 0.2% 550 ML 550 ML NERVE BLCK SCH (08:30)
[2021-02-03] MEDS ORDERED: traMADol HCl 50 MG TAB PO PRN ×2 (08:30→10:58)
[2021-02-03] MEDS ORDERED: HYDROmorphone 2 MG/ML VIAL SLOW IVP PRN (09:33)
[2021-02-03] MEDS ORDERED: Ondansetron HCl/PF 4 MG/2 ML Vial IVP PRN (09:33)
[2021-02-03] MEDS ORDERED: Promethazine HCl 25 MG/ML VIAL IVPB PRN (09:33)
[2021-02-03] MEDS ORDERED: Meperidine HCl/PF 25 MG/ML VIAL SLOW IVP PRN (09:33)
[2021-02-03] MEDS ORDERED: Fentanyl 100 MCG/2 ML VIAL SLOW IVP PRN ×2 (10:58)
[2021-02-03] MEDS ORDERED: diphenhydrAMINE 25 MG CAP PO PRN (10:58)
[2021-02-03] MEDS ORDERED: Acetaminophen 325 MG TAB PO PRN (10:58)
[2021-02-03] MEDS ORDERED: Ketorolac Tromethamine 30 MG/ML VIAL IVP PRN (10:58)
[2021-02-03] MEDS: Ferrous Gluconate 324 MG TAB PO SCH ×3 (11:32→19:23)
[2021-02-03] MEDS: Multivitamin W/ Minerals 1 TAB PO SCH ×2 (11:32→11:36)
[2021-02-03] MEDS: Aspirin 81 mg Enteric Coated Tablet PO SCH ×3 (11:32→19:24)
[2021-02-03] MEDS: Ketorolac Tromethamine 30 MG/ML VIAL IVP SCH ×3 (11:33→23:06)
[2021-02-03] MEDS: Sodium Chloride 0.9% 1,000 ML IV SCH (11:33)
[2021-02-03] MEDS: Senokot S 8.6-50 MG TAB PO SCH ×3 (11:33→19:24)
[2021-02-03] MEDS: Clindamycin/D5W 900 MG in Premix Bag 1 BAG IVPB SCH ×2 (11:35→17:00)
[2021-02-03] MEDS ORDERED: hydrALAZINE 20 MG/ML VIAL SLOW IVP PRN (12:27)
[2021-02-03] MEDS ORDERED: Dextrose 50% Abboject 50 ML SYRINGE SLOW IVP PRN (12:28)
[2021-02-03] MEDS ORDERED: Dextrose 5% in Water 1,000 ML IV PRN (12:28)
[2021-02-03] MEDS ORDERED: Insulin Regular 300 UNITS/3 ML VIAL SC PRN (12:28)
[2021-02-03] MEDS ORDERED: Losartan 25 MG TAB PO SCH (13:15)
[2021-02-03] MEDS ORDERED: FLU VACC QS2021-22(65YR UP)/PF 240 MCG/0.7 ML SYRINGE IM ONE (14:45)
[2021-02-03] MEDS: metFORMIN 500 MG TAB PO SCH (16:58)
[2021-02-03] MEDS ORDERED: Vancomycin 1 GM in Premix Bag 1 BAG IVPB SCH (18:00)
[2021-02-03] MEDS: Calcium Carbonate 600 MG + Vit D TAB PO SCH (19:24)
[2021-02-03] MEDS: Lantus 1000 UNITS/10 ML VIAL SC SCH (23:01)
[2021-02-03] MEDS: Insulin Regular 300 UNITS/3 ML VIAL SC PRN (23:02)
[2021-02-04] MEDS: Sodium Chloride 0.9% 1,000 ML IV SCH ×3 (02:33→15:18)
[2021-02-04] MEDS: Ketorolac Tromethamine 30 MG/ML VIAL IVP SCH ×4 (05:02→23:58)
[2021-02-04] MEDS: Insulin Regular 300 UNITS/3 ML VIAL SC PRN ×4 (06:15→21:23)
[2021-02-04 06:52] LABS: Hemoglobin 11.4 g/dL (12.0-16.0); Mean Corpuscular HGB CONC 35.1 g/dL (32.0-36.0); Mean Corpuscular Hemoglobin 31.6 pg (27.0-31.0); Mean Corpuscular Volume 89.9 fL (78.0-98.0); Mean Platelet Volume 7.2 fL (7.4-10.4); Platelet Count 310 thou/uL (130-400); RBC Distribution Width 11.9 % (11.5-14.5); Red Blood Cell (RBC) Count 3.62 mill/uL (4.20-5.40); White Blood Cell (WBC) Count 15.5 thou/uL (4.8-10.8)
[2021-02-04] MEDS ORDERED: Lantus 1000 UNITS/10 ML VIAL SC SCH (07:23)
[2021-02-04] MEDS: metFORMIN 500 MG TAB PO SCH ×2 (08:08→17:33)
[2021-02-04] MEDS: Multivitamin W/ Minerals 1 TAB PO SCH (08:08)
[2021-02-04] MEDS: Ferrous Gluconate 324 MG TAB PO SCH ×2 (08:08→20:34)
[2021-02-04] MEDS: Senokot S 8.6-50 MG TAB PO SCH ×2 (08:08→20:35)
[2021-02-04] MEDS: Losartan 25 MG TAB PO SCH (08:09)
[2021-02-04] MEDS: Calcium Carbonate 600 MG + Vit D TAB PO SCH ×2 (08:09→20:35)
[2021-02-04] MEDS: Aspirin 81 mg Enteric Coated Tablet PO SCH ×2 (08:09→20:34)
[2021-02-04] MEDS ORDERED: Losartan 25 MG TAB PO SCH (09:00)
[2021-02-04] MEDS: traMADol HCl 50 MG TAB PO PRN (16:04)
[2021-02-04] MEDS: Lantus 1000 UNITS/10 ML VIAL SC SCH (20:34)
[2021-02-05] MEDS: Sodium Chloride 0.9% 1,000 ML IV SCH (03:44)
[2021-02-05] MEDS: Ketorolac Tromethamine 30 MG/ML VIAL IVP SCH (04:52)
[2021-02-05] MEDS: Insulin Regular 300 UNITS/3 ML VIAL SC PRN (06:25)
[2021-02-05 06:34] LABS: Mean Corpuscular HGB CONC 33.9 g/dL (32.0-36.0); Mean Corpuscular Volume 91.4 fL (78.0-98.0); Mean Platelet Volume 6.9 fL (7.4-10.4); Platelet Count 232 thou/uL (130-400); RBC Distribution Width 11.9 % (11.5-14.5); Red Blood Cell (RBC) Count 3.23 mill/uL (4.20-5.40); White Blood Cell (WBC) Count 8.3 thou/uL (4.8-10.8)
[2021-02-05 08:27] VITALS: TEMP 98.2
[2021-02-05] MEDS: metFORMIN 500 MG TAB PO SCH (08:35)
[2021-02-05] MEDS: Calcium Carbonate 600 MG + Vit D TAB PO SCH (08:35)
[2021-02-05] MEDS: Senokot S 8.6-50 MG TAB PO SCH (08:35)
[2021-02-05] MEDS: Losartan 25 MG TAB PO SCH (08:35)
[2021-02-05] MEDS: Ferrous Gluconate 324 MG TAB PO SCH (08:36)
[2021-02-05] MEDS: Multivitamin W/ Minerals 1 TAB PO SCH (08:36)
[2021-02-05] MEDS: Aspirin 81 mg Enteric Coated Tablet PO SCH (08:36)
[2021-02-05] MEDS: traMADol HCl 50 MG TAB PO PRN (08:43)
[2021-02-05] MEDS ORDERED: Lantus 1000 UNITS/10 ML VIAL SC SCH (09:00)
[2021-02-05 13:04] VITALS: BP 169/78
== END 2021-02-05 14:00 | disposition home or self-care (01) ==
LOC: SDC 05:28 → SURG A 10:51 → SDC 18:10 → SURG A 18:10
PROVIDERS: ADMIT Orthopaedic Surgery; ATTEND Orthopaedic Surgery
PROC: 0SRD0J9 Replacement of Left Knee Joint with Synthetic Substitute, Cemented, Open Approach (ICD-10-PCS; principal; 2021-02-03)
PROC: 3E0T3BZ Introduction of Anesthetic Agent into Peripheral Nerves and Plexi, Percutaneous Approach (ICD-10-PCS; 2021-02-03)
DX: M17.12 Unilateral primary osteoarthritis, left knee (principal); E11.9 Type 2 diabetes mellitus without complications; I10 Essential (primary) hypertension; Z79.4 Long term (current) use of insulin; Z79.84 Long term (current) use of oral hypoglycemic drugs; Z79.899 Other long term (current) drug therapy; Z88.0 Allergy status to penicillin; Z96.651 Presence of right artificial knee joint
CPT/HCPCS: 27447; 64448; 73560; 82962 ×3; 85027 ×2; 97110 ×2; 97116 ×3; 97139 ×3; 97530 ×3; A4306; C1713; C1776; 36415; 36416; 96374; 96375; 96376; G0378; J1100; J1170; J1815; J1885; J2001; J2250; J2370; J2405; J2704; J2765; J2795; J3010; J3370; J3490; J7050; S0020

== ENCOUNTER 2021-05-28 10:52 | Outpatient (CLI) | payer MEDICARE | END 2021-05-28 10:53 | disposition home or self-care (01) | LOC: BICRAD 10:52 | PROVIDERS: ATTEND Family Medicine | DX: M25.511 Pain in right shoulder (principal) ==

== ENCOUNTER 2021-06-25 15:08 | Outpatient (CLI) | payer MEDICARE | END 2021-06-25 15:09 | disposition home or self-care (01) | LOC: BICRAD 15:08 | PROVIDERS: ATTEND Family Medicine | DX: R07.89 Other chest pain (principal) | CPT/HCPCS: 71046 ==

== ENCOUNTER 2021-10-25 21:31 | Inpatient (IN) | payer MEDICARE ==
[~2021-10-25 21:31] MED LIST: Iopamidol-370 76% 500 ML 1 ML ONE
[2021-10-25] MEDS ORDERED: Ondansetron PF 4 MG/2 ML Vial ONE (22:08)
[2021-10-25] MEDS ORDERED: Aspirin 325 MG TAB ONE (22:08)
[2021-10-25 23:04] LABS: #Basophils 0.1 thou/uL (0.0-0.2); #Eosinphils 0.5 thou/uL (0.0-0.7); #Lymphocytes 3.4 thou/uL (1.20-3.40); #Monocytes 0.7 thou/uL (0.11-0.59); #Neutrophils 8.2 thou/uL (1.40-6.50); %Basophils 0.6 % (0.0-1.0); %Eosinophils 4.1 % (0.0-10.0); %Lymphocytes 26.5 % (21.0-51.0); %Monocytes 5.1 % (0.0-10.0); %Neutrophils 63.7 % (42.0-75.0); Hemoglobin 15.3 g/dL (12.0-16.0); Mean Corpuscular HGB CONC 34.2 g/dL (32.0-36.0); Mean Corpuscular Hemoglobin 30.9 pg (27.0-31.0); Mean Corpuscular Volume 90.3 fL (78.0-98.0); Mean Platelet Volume 8.1 fL (7.4-10.4); Platelet Count 317 thou/uL (130-400); RBC Distribution Width 12.4 % (11.5-14.5); Red Blood Cell (RBC) Count 4.95 mill/uL (4.20-5.40); White Blood Cell (WBC) Count 12.9 thou/uL (4.8-10.8)
[2021-10-25 23:15] LABS: INR-International Normal Ratio 0.9; PTT 28.6 sec (22.9-36.1); Prothrombin Time 11.6 sec (12.0-14.7)
[2021-10-25 23:30] LABS: Acetaminophen Less than 10.0 mcg/mL (10.0-30.0); Alcohol Less than 10 mg/dL (Less than 10); Salicylate Less than 8.0 mg/dL (15.0-30.0)
[2021-10-25 23:49] LABS: Albumin 4.6 g/dL (3.4-4.8)
[2021-10-25 23:50] LABS: Chloride 95 mmol/L (98-107); Potassium 4.1 mmol/L (3.5-5.1); Sodium 136 mmol/L (136-145)
[2021-10-25 23:51] LABS: Calcium 9.8 mg/dL (7.8-10.44); Glucose 219 mg/dL (83-110)
[2021-10-25 23:52] LABS: Globulin 2.8 g/dL (2.4-3.5); Protein, Total 7.4 g/dL (5.8-8.1)
[2021-10-25 23:53] LABS: Anion Gap 21 mmol/L (10-20); Bilirubin, Total 0.6 mg/dL (0.2-1.2); Carbon Dioxide 24 mmol/L (23-31)
[2021-10-25 23:54] LABS: Alkaline Phosphatase 68 U/L (40-110)
[2021-10-25 23:55] LABS: BUN (Urea Nitrogen) 14 mg/dL (9.8-20.1); Calc. Creatinine Clearance 0 mL/min (70-130); Estimated GFR 81
[2021-10-25 23:56] LABS: AST (SGOT) 16 U/L (5-34)
[2021-10-25 23:57] LABS: ALT (SGPT) 18 U/L (8-55); Magnesium 1.6 mg/dL (1.6-2.6)
[2021-10-25 23:58] LABS: Lipase 18 U/L (8-78)
[2021-10-26] MEDS ORDERED: Vancomycin 1 GM/200 ML BAG ONE (01:21)
[2021-10-26] MEDS ORDERED: Piperacillin/Tazobactam 3.375 GM VIAL ONE (01:21)
[2021-10-26] MEDS ORDERED: Morphine 4 MG/ML VIAL ONE (01:21)
[2021-10-26] MEDS ORDERED: Acetaminophen 325 MG TAB PO PRN (01:34)
[2021-10-26] MEDS ORDERED: hydrALAZINE 20 MG/ML VIAL SLOW IVP PRN (01:34)
[2021-10-26] MEDS ORDERED: Labetalol HCl 100 MG/20 ML VIAL SLOW IVP PRN (01:34)
[2021-10-26] MEDS ORDERED: Ondansetron PF 4 MG/2 ML Vial IVP PRN (01:34)
[2021-10-26] MEDS ORDERED: cefTRIAXone\\ROCEPHIN 2 GM VIAL ONE (01:55)
[2021-10-26] MEDS ORDERED: Sodium Chloride 0.9% 1,000 ML IV SCH (02:00)
[2021-10-26 02:13] LABS: Lactic Acid 2.8 mmol/L (0.5-2.2)
[2021-10-26] MEDS ORDERED: HumaLOG 300 UNITS/3 ML VIAL SC PRN ×2 (02:24)
[2021-10-26] MEDS ORDERED: Dextrose 50% Abboject 50 ML SYRINGE SLOW IVP PRN (02:24)
[2021-10-26] MEDS ORDERED: Dextrose 5% in Water 1,000 ML IV PRN (02:24)
[2021-10-26 03:20] VITALS: BMI 26.7
[2021-10-26 03:25] LABS: Bilirubin Negative (Negative); Blood, Urine Negative (Negative); Clarity Clear (Clear); Glucose, Urine (Dipstick) 150 mg/dL (Negative); Ketone, Urine 10 mg/dL (Negative); Leukocyte Negative Leu/uL (Negative); Nitrite Negative (Negative); Protein, Urine (Dipstick) Negative (Neg-Trace); Urobilinogen Normal mg/dL (Less than 2); pH, Urine 7.5 (5.0-9.0)
[2021-10-26 03:26] LABS: Urine Culture Reflex No No
[2021-10-26 03:49] LABS: Amphetamine Not Detected (NotDetected); Barbiturates Screen Not Detected (NotDetected); Benzodiazepine Screen Not Detected (NotDetected); Cocaine Metabolite Screen Not Detected (NotDetected); Methadone Not Detected (NotDetected); Methamphetamine Not Detected (NotDetected); Opiate Screen Not Detected (NotDetected); Oxycodone Screen Not Detected (NotDetected); Phencyclidine (PCP) Not Detected (NotDetected); THC/Cannabinoid Screen Not Detected (NotDetected); Tricyclic Screen Not Detected (NotDetected)
[2021-10-26 05:28] LABS: #Eosinphils 0.1 thou/uL (0.0-0.7); #Lymphocytes 1.8 thou/uL (1.20-3.40); #Monocytes 0.6 thou/uL (0.11-0.59); #Neutrophils 8.8 thou/uL (1.40-6.50); %Basophils 0.2 % (0.0-1.0); %Eosinophils 0.8 % (0.0-10.0); %Lymphocytes 15.8 % (21.0-51.0); %Neutrophils 78.3 % (42.0-75.0); Hemoglobin 13.4 g/dL (12.0-16.0); Mean Corpuscular HGB CONC 34.2 g/dL (32.0-36.0); Mean Corpuscular Hemoglobin 30.8 pg (27.0-31.0); Mean Corpuscular Volume 89.9 fL (78.0-98.0); Mean Platelet Volume 7.2 fL (7.4-10.4); Platelet Count 285 thou/uL (130-400); RBC Distribution Width 12.2 % (11.5-14.5); Red Blood Cell (RBC) Count 4.36 mill/uL (4.20-5.40); White Blood Cell (WBC) Count 11.2 thou/uL (4.8-10.8)
[2021-10-26 05:32] LABS: Hemoglobin A1c 8.4 % (4.0-6.0)
[2021-10-26 05:40] LABS: Lactic Acid 1.7 mmol/L (0.5-2.2)
[2021-10-26 05:45] LABS: Anion Gap 14 mmol/L (10-20); BUN (Urea Nitrogen) 10 mg/dL (9.8-20.1); Calc. Creatinine Clearance 83 mL/min (70-130); Calcium 8.8 mg/dL (7.8-10.44); Carbon Dioxide 28 mmol/L (23-31); Cardiac Risk 3.1 (Less than 4.5); Chloride 99 mmol/L (98-107); Cholesterol 169 mg/dl (< 200 Desired); Estimated GFR 93; Glucose 222 mg/dL (83-110); HDL Cholesterol 55 mg/dL (>60 Neg Risk); LDL Cholesterol, Calculated 97 mg/dL; Potassium 3.5 mmol/L (3.5-5.1); Sodium 137 mmol/L (136-145); Triglycerides 83 mg/dL (Less than 150)
[2021-10-26] MEDS ORDERED: Aspirin 81 mg Enteric Coated Tablet PO SCH (09:00)
[2021-10-26 15:58] VITALS: BP 141/56; TEMP 97.9
[2021-10-26] MEDS ORDERED: metFORMIN 500 MG TAB PO SCH (17:00)
[2021-10-26] MEDS ORDERED: VANCOMYCIN 1.25 GM/250 ML BAG 1.25 GM in Premix Bag 1 BAG IVPB SCH (21:00)
[2021-10-26] MEDS ORDERED: Atorvastatin Calcium 40 MG TAB PO SCH (21:00)
[2021-10-26] MEDS ORDERED: Insulin Glargine 30 UNITS/0.3 ML VIAL SC SCH (21:00)
[2021-10-27] MEDS ORDERED: cefTRIAXone\\ROCEPHIN 2 GM in Sodium Chloride 0.9% 100 ML IVPB SCH (02:00)
[2021-10-27] MEDS ORDERED: Losartan 25 MG TAB PO SCH (09:00)
== END 2021-10-26 16:53 | disposition home or self-care (01) | DRG 69 ==
LOC: ERS 21:31 → NEURO 10-26 00:49
PROVIDERS: ADMIT Internal Medicine; ATTEND Internal Medicine
DX: G45.9 Transient cerebral ischemic attack, unspecified (principal); G93.41 Metabolic encephalopathy; Z20.822 Contact with and (suspected) exposure to COVID-19; D72.829 Elevated white blood cell count, unspecified; E11.9 Type 2 diabetes mellitus without complications; I10 Essential (primary) hypertension; M19.90 Unspecified osteoarthritis, unspecified site; Z96.653 Presence of artificial knee joint, bilateral; Z85.3 Personal history of malignant neoplasm of breast; Z92.3 Personal history of irradiation; Z92.21 Personal history of antineoplastic chemotherapy; Z90.12 Acquired absence of left breast and nipple; Z88.1 Allergy status to other antibiotic agents; Z79.899 Other long term (current) drug therapy; Z79.84 Long term (current) use of oral hypoglycemic drugs; Z90.710 Acquired absence of both cervix and uterus; Z80.9 Family history of malignant neoplasm, unspecified; Z82.0 Family history of epilepsy and other diseases of the nervous system; Z98.890 Other specified postprocedural states; Z79.82 Long term (current) use of aspirin; Z79.4 Long term (current) use of insulin
CPT/HCPCS: 36415; 36416; 70450; 70496; 70498; 70551; 71045; 80048; 80053; 80061; 80306; 80307; 83036; 83605; 83690; 83735; 84484; 85025; 85610; 85652; 85730; 86140; 86850; 86870; 86900; 86901; 87040; 87086; 93005; 94760; 95816; 95819; 95957; J0696; J2270; J2405; J2543; J3370; J7050; Q9967; U0003; U0005

== ENCOUNTER 2023-02-04 15:47 | Outpatient (CLI) | payer MEDICARE ==
[2023-02-04 17:35] LABS: Anion Gap 18 mmol/L (10-20); BUN (Urea Nitrogen) 18 mg/dL (9.8-20.1); Calc. Creatinine Clearance 0 mL/min (70-130); Carbon Dioxide 23 mmol/L (23-31); Chloride 99 mmol/L (98-107); Estimated GFR 81; Glucose 265 mg/dL (83-110); Potassium 4.4 mmol/L (3.5-5.1); Sodium 136 mmol/L (136-145)
[2023-02-04 17:41] LABS: #Basophils 0.1 10x3/uL (0.0-0.2); #Eosinphils 0.5 10x3/uL (0.0-0.5); #Monocytes 0.6 10x3/uL (0.0-1.1); #Neutrophils 6.1 10x3/uL (1.5-8.4); %Basophils 0.5 % (0.0-2.0); %Eosinophils 5.4 % (0.0-6.0); %Lymphocytes 23.5 % (18.0-47.0); %Monocytes 6.3 % (0.0-10.0); %Neutrophils 64.1 % (40.0-75.0); Hematocrit 38.4 % (34.9-44.5); Hemoglobin 12.9 g/dL (12.0-15.5); Mean Corpuscular HGB CONC 33.6 g/dL (32.0-36.0); Mean Corpuscular Hemoglobin 30.4 pg (27.0-33.0); Mean Corpuscular Volume 90.4 fl (81.6-98.3); Mean Platelet Volume 10.5 fl (7.4-10.4); Platelet Count 342 10x3/uL (150-450); RBC Distribution Width 12.2 % (11.5-14.5); Red Blood Cell (RBC) Count 4.25 10x6/uL (3.90-5.03); White Blood Cell (WBC) Count 9.4 10x3/uL (3.5-10.5)
== END 2023-02-04 15:48 | disposition home or self-care (01) ==
LOC: LABBT 15:47
PROVIDERS: ATTEND Surgery
DX: Z01.818 Encounter for other preprocedural examination (principal); L98.9 Disorder of the skin and subcutaneous tissue, unspecified
CPT/HCPCS: 80048; 85025; 93005; 93010